=== PATIENT | female | born 1995 | race African-American/Black ===

== ENCOUNTER 2018-11-21 14:13 | Emergency (ER) | payer OTHER ==
--- NOTE | 2018-11-21 14:52 | ED Physician Documentation ---
PD HPI NVD - Stated complaint Stated Complaint: VOMITING/NAUSEA - Chief complaint Chief Complaint: Abd Pain - History obtained from History obtained from: Patient - History of Present Illness Timing - onset: How many days ago (4) Timing - duration: Days (4) Timing - details: Abrupt onset (she was sick 4 days ago with vomiting and some diarrhea that lasted a day, then was improved to eating some 2 days ago. Then return of vomiting with upper abd pain yesterday into today. Feeling weak and dehydrated.) Associated symptoms: Abdominal pain (upper), Loss of appetite. No: Fever, Hematemesis, Melena, Near syncope / syncope, Dysuria Contributing factors: No: Sick contact, Bad food, Travel, Recent antibiotics, Alcohol use Improved by: No: Eating Worsened by: Eating Similar symptoms before: Has not had sx before Recently seen: Not recently seen Review of Systems Constitutional: denies: Fever, Chills Nose: denies: Rhinorrhea / runny nose, Congestion Throat: denies: Sore throat Respiratory: denies: Cough GI: reports: Abdominal Pain, Nausea, Vomiting, Diarrhea (for a day, then improved). denies: Abdominal Swelling Neurologic: reports: Generalized weakness, Headache. denies: Focal weakness, Numbness, Altered mental status PD PAST MEDICAL HISTORY - Past Medical History Cardiovascular: None Respiratory: None Neuro: None Endocrine/Autoimmune: None GI: None - Present Medications Home Medications: Ambulatory Orders Medication Instructions Recorded Confirmed Famotidine 20 mg PO BID #15 tablet 11/21/18 Ondansetron Odt [Zofran] 4 mg TL Q6H PRN #15 tablet 11/21/18 - Allergies Allergies/Adverse Reactions: Allergies Allergy/AdvReac Type Severity Reaction Status Date / Time No Known Drug Allergies Allergy Verified 11/21/18 14:19 PD ED PE NORMAL - Vitals Vital signs reviewed: Yes - General General: Alert and oriented X 3, No acute distress, Well developed/nourished - HEENT HEENT: Pharynx benign. No: Moist mucous membranes - Neck Neck: Supple, no meningeal sign, No adenopathy - Cardiac Cardiac: RRR, No murmur - Respiratory Respiratory: Clear bilaterally - Abdomen Abdomen: Normal bowel sounds, Soft, Non distended, No organomegaly, Other (tender epigastric and RUQ with some guarding RUQ. No percussion tenderness. ) - Female Female : Deferred - Rectal Rectal: Deferred - Derm Derm: Normal color, Warm and dry - Extremities Extremities: Normal ROM s pain, No edema, No calf tenderness / cord - Neuro Neuro: Alert and oriented X 3, No motor deficit, Normal speech Results - Vitals Vitals: Vital Signs - 24 hr 11/21/18 11/21/18 11/21/18 14:19 16:24 17:41 Temperature 36.7 C Heart Rate 70 73 86 Respiratory 15 16 18 Rate Blood Pressure 144/89 H 142/100 H 136/92 H O2 Saturation 100 100 98 Oxygen O2 Source Room air - Labs Labs: Laboratory Tests 11/21/18 11/21/18 14:38 14:38 WBC 3.7 L RBC 4.77 Hgb 11.5 L Hct 39.0 MCV 81.8 MCH 24.1 L MCHC 29.5 L RDW 15.6 H Plt Count 292 MPV 11.4 H Neut # (Auto) 1.1 L Lymph # (Auto) 2.3 [place] # (Auto) 0.3 Eos # (Auto) 0.0 Baso # (Auto) 0.0 Absolute Nucleated RBC 0.00 Nucleated RBC % 0.0 Sodium 140 Potassium 3.2 L Chloride 104 Carbon Dioxide 28 Anion Gap 8.0 BUN 8 Creatinine 1.0 Estimated GFR (MDRD) 83 L Glucose 91 Calcium 9.6 Magnesium 2.1 Total Bilirubin 1.6 H AST 26 ALT 15 Alkaline Phosphatase 28 L Total Protein 8.4 H Albumin 4.5 Globulin 3.9 Albumin/Globulin Ratio 1.2 Lipase 36 - Rads (name of study) abd U/S Radiology: Prelim report reviewed (slightly thickened GB [place] without stones nor surrounding fluid. ), See rad report PD MEDICAL DECISION MAKING - ED course Complexity details: re-evaluated patient (feeling much better with meds and fluids. ), considered differential (likely viral GE with then subsequent gastritis, can check to ensure not GB problem nor pancreatic. ), d/w patient Departure - Departure Disposition: 01 Home, Self Care Clinical Impression: Nausea and vomiting Qualifiers: Vomiting type: unspecified Vomiting Intractability: non-intractable Qualified Code(s): R11.2 - Nausea with vomiting, unspecified Acute gastritis Qualifiers: Gastritis type: unspecified gastritis Gastritis bleeding: without bleeding Qualified Code(s): K29.00 - Acute gastritis without bleeding Condition: Stable Record reviewed to determine appropriate education?: Yes Instructions: ED Gastritis Follow-Up: CATRACHITO PEARSON [Primary Care Provider] - Prescriptions: Famotidine 20 mg PO BID #15 tablet Ondansetron Odt [Zofran] 4 mg TL Q6H PRN #15 tablet PRN Reason: Nausea / Vomiting Comments: Small frequent fluids. [place] food initially such as rice pastas crackers etc. Progress diet as able over the next day or so. Use famotidine acid reducing medicine for the next week to allow better healing of the stomach. Presume its irritated from having been vomiting. Ondansetron if needed for nausea. Rest today and tomorrow off work for full recovery. Recheck if not better over the next couple of days. Forms: Activity restrictions Discharge Date/Time: 11/21/18 17:47
[2018-11-21] MEDS ORDERED: SODIUM CHLORIDE 0.9% 1,000 ML IV ONE ×2 (15:36→15:37)
[2018-11-21] MEDS ORDERED: MAG HYDROX/AL HYDROX/SIMETH 30 ML UDC PO STA (15:37)
[2018-11-21] MEDS ORDERED: LIDOCAINE VISCOUS 2% 15 ML UDC MM STA (15:37)
[2018-11-21] MEDS ORDERED: ONDANSETRON 4 MG/2 ML VIAL IVP STA (15:38)
[2018-11-21] MEDS ORDERED: KETOROLAC 15 MG/ML VIAL IVP STA (15:38)
[2018-11-21] MEDS ORDERED: FAMOTIDINE 20 MG/2 ML VIAL IVP STA (15:38)
[2018-11-21 15:59] LABS: ALBUMIN 4.5 g/dL (3.2-5.5); ALBUMIN/GLOBULIN RATIO 1.2 (1.0-2.2); BILIRUBIN,TOTAL 1.6 mg/dL (0.2-1.0); CALCIUM 9.6 mg/dL (8.5-10.3); MAGNESIUM 2.1 mg/dL (1.7-2.8); TOTAL PROTEIN 8.4 g/dL (6.7-8.2)
[2018-11-21 16:01] LABS: BASOPHILS % (AUTO) 0.3 %; EOSINOPHILS % (AUTO) 1.1 %; HGB - HEMOGLOBIN 11.5 g/dL (12.0-16.0); LYMPHOCYTES # (AUTO) 2.3 10^3/uL (1.5-3.5); LYMPHOCYTES % (AUTO) 61.1 %; MEAN CORPUSCULAR HEMOGLOBIN 24.1 pg (27.0-31.0); MEAN CORPUSCULAR HGB CONC 29.5 g/dL (32.0-36.0); MEAN CORPUSCULAR VOLUME 81.8 fL (81.0-99.0); MEAN PLATELET VOLUME 11.4 fL (7.9-10.8); MONOCYTES # (AUTO) 0.3 10^3/uL (0.0-1.0); MONOCYTES % (AUTO) 8.4 %; NEUTROPHILS # (AUTO) 1.1 10^3/uL (1.5-6.6); NEUTROPHILS % (AUTO) 28.8 %; PLT - PLATELET COUNT 292 10^3/uL (130-450); RED BLOOD COUNT 4.77 10^6/uL (4.20-5.40); RED CELL DISTRIBUTION WIDTH 15.6 % (12.0-15.0); WHITE BLOOD COUNT 3.7 x10^3/uL (4.8-10.8)
--- NOTE | 2018-11-21 16:39 | Ultrasound Report ---
Reason: RUQ pain and vomting few days Procedure Date: 11/21/2018 Accession Number: [id number] / [id number] Procedure: US - Abdomen Limited CPT Code: FULL RESULT: EXAM: ABDOMEN ULTRASOUND LIMITED, RUQ EXAM DATE: 11/21/2018 04:23 PM. CLINICAL HISTORY: RUQ pain and vomiting few days. COMPARISON: None. TECHNIQUE: Real-time scanning was performed with static images obtained. FINDINGS: Liver: Normal in size and echotexture. 15.5 cm. Main portal vein flow: Hepatopetal. Gallbladder: The gallbladder wall appears mildly thickened at 4.5 mm. The gallbladder is tender. No gallstones or sludge. No pericholecystic fluid. Biliary System: CBD measures 3 mm. No intrahepatic or extrahepatic ductal dilatation. Other: Right kidney measures 10 cm in length. No hydronephrosis. IMPRESSION: 1. Mild gallbladder wall thickening with localized gallbladder pain. No gallstones or sludge. Nonspecific findings which could represent acalculus cholecystitis, pancreatitis, duodenitis, or other right upper quadrant inflammatory process. 2. No biliary dilatation or right kidney hydronephrosis. [facility]
[2018-11-21 17:43] VITALS: BP 136/92
== END 2018-11-21 17:47 | disposition home or self-care (01) ==
LOC: ED 14:13
DX: K29.00 Acute gastritis without bleeding (principal)
CPT/HCPCS: 36415; 76705; 80053; 83690; 83735; 85025; 96361; 96374; 96375; 99283; 99284; A9270